=== PATIENT | male | born 1935 | race Caucasian/White ===

== ENCOUNTER 2022-01-21 11:21 | Emergency (ER) | payer MEDICARE ==
[~2022-01-21] VITALS: Ht 172.7 cm; Wt 79.5 kg
[2022-01-21] MEDS ORDERED: MEMA28CA16 PO (11:43)
[2022-01-21] MEDS ORDERED: MULT-264 PO (11:43)
[2022-01-21] MEDS ORDERED: FINA-27 PO (11:43)
[2022-01-21] MEDS ORDERED: DONE-52 PO (11:43)
[2022-01-21] MEDS ORDERED: METO25 PO (11:45)
[2022-01-21] MEDS ORDERED: LEVO50 PO (11:45)
[2022-01-21] MEDS ORDERED: PERTUSS(ACELL),DIPH,TET VAC/PF 0.5 ML SYRINGE IM. ONE (13:15)
[2022-01-21 18:15] VITALS: BP 148/60
== END 2022-01-21 18:53 | disposition home or self-care (01) ==
LOC: EMS 11:25
DX: S00.01XA Abrasion of scalp, initial encounter (principal); S50.312A Abrasion of left elbow, initial encounter; F03.90 Unspecified dementia, unspecified severity, without behavioral disturbance, psychotic disturbance, mood disturbance, and anxiety; E03.9 Hypothyroidism, unspecified; Z85.118 Personal history of other malignant neoplasm of bronchus and lung; Z87.898 Personal history of other specified conditions; W06.XXXA Fall from bed, initial encounter; Y93.89 Activity, other specified; Y92.89 Other specified places as the place of occurrence of the external cause; Y99.8 Other external cause status
CPT/HCPCS: 70450; 72125; 90471; 90715; 99284

== ENCOUNTER 2022-02-03 19:28 | Emergency (ER) | payer MEDICARE ==
[~2022-02-03] VITALS: Ht 182.9 cm; Wt 78.0 kg
[~2022-02-03 19:28] MED LIST: DONE-52 PO; FINA-27 PO; LEVO50 PO; MEMA28CA16 PO; METO25 PO; MULT-264 PO
[2022-02-03] MEDS ORDERED: 0.9% SODIUM CHLORIDE 10 ML SYRINGE IVP ONE (19:29)
[2022-02-03] MEDS ORDERED: EPINEPHrine 1:10,000 [1 MG/10 ML] SYRINGE IVP ONE (19:29)
[2022-02-03] MEDS ORDERED: SODIUM BICARBONATE [ADULT] 8.4% 50 MEQ/50 ML SYRINGE IVP ONE (19:45)
[2022-02-03 19:55] LABS: BASOPHILS % (AUTO) 0.3 % (0.0-2.0); EOSINOPHILS % (AUTO) 0.2 % (1.0-6.0); HEMATOCRIT 44.1 % (41-53); HEMOGLOBIN 13.2 g/dL (13.5-17.5); LYMPHOCYTES # (AUTO) 3.1 K/uL (1.0-4.8); LYMPHOCYTES % (AUTO) 18.9 % (22.0-44.0); MEAN CORPUSCULAR HEMOGLOBIN 28.6 pg (26.0-34.0); MEAN CORPUSCULAR HGB CONC 29.9 G/dL (31.0-37.0); MEAN CORPUSCULAR VOLUME 96 fL (80-100); MONOCYTES # (AUTO) 0.7 K/uL (0.1-1.0); MONOCYTES % (AUTO) 4.1 % (2.0-9.0); NEUTROPHILS # (AUTO) 12.5 K/uL (1.8-7.7); NEUTROPHILS % (AUTO) 76.5 % (40.0-70.0); PLATELET COUNT (AUTO) 278 K/uL (150-450); RED BLOOD CELL COUNT(AUTO) 4.62 MIL/uL (4.50-5.90); RED CELL DISTRIBUTION WIDTH 15.4 % (11.5-14.5)
[2022-02-03 20:01] LABS: GLUCOSE,POINT OF CARE 178 MG/DL (70-110)
[2022-02-03 20:01] LABS: CALCIUM, TOTAL 9.2 mg/dL (8.8-10.5); CREATININE 2.45 mg/dL (0.60-1.30)
[2022-02-03 20:05] LABS: INR 1.3 (0.9-1.1); PROTHROMBIN TIME 13.2 SEC (9.4-11.6)
[2022-02-03 20:08] LABS: AMMONIA 75 umol/L (11-32)
[2022-02-03 20:25] LABS: ALBUMIN 2.8 g/dL (3.4-5.0); BILIRUBIN,TOTAL 0.4 mg/dL (0.1-1.0)
[2022-02-03 20:45] VITALS: BP 0/0
== END 2022-02-04 01:12 ==
LOC: EMS 19:28
DX: P22.0 Respiratory distress syndrome of newborn (principal); E03.9 Hypothyroidism, unspecified
CPT/HCPCS: 99291; 80053; 82140; 82550; 82962; 83880; 84484; 85025; 85610; 85730; 93005; J0171; J3490; 92950; 94002